=== PATIENT | female | born 1945 | race Caucasian/White ===

== ENCOUNTER 2018-04-15 13:25 | Outpatient (REF) | payer MEDICARE, OTHER, SELFPAY | END 2018-04-15 13:45 | LOC: NCHCN 13:25 | PROVIDERS: PCP Internal Medicine; Visit Provider Nurse Practitioner Family | DX: N39.0 Urinary tract infection, site not specified (principal) | CPT/HCPCS: 87077; 87086; 87186 ==

== ENCOUNTER 2018-06-04 16:25 | Outpatient (REF) | payer MEDICARE, OTHER, SELFPAY ==
[2018-06-04 21:42] LABS: COMMENT (LAB VIEW ONLY) 152.66 mg/dL; Microalb ug/mg Crea 36.4 ug/mg Cr
== END 2018-06-04 16:45 ==
LOC: NCHCN 16:25
PROVIDERS: PCP Internal Medicine; Visit Provider Internal Medicine
DX: E11.9 Type 2 diabetes mellitus without complications (principal)
CPT/HCPCS: 82043; 82570

== ENCOUNTER → 2019-03-23 10:16 | Outpatient (BNVA) | payer MEDICARE, OTHER, SELFPAY | PROVIDERS: PCP Internal Medicine; Referring Provider Internal Medicine; Visit Provider Physical Therapy Assistant | DX: R13.10 Dysphagia, unspecified (principal); Z86.010 Personal history of colon polyps; E11.9 Type 2 diabetes mellitus without complications; I10 Essential (primary) hypertension | CPT/HCPCS: 99213 ==

== ENCOUNTER 2019-03-27 11:48 | Day surgery (SDC) | payer MEDICARE, OTHER, SELFPAY ==
[2019-03-27 12:37] VITALS: BP 146/75; PULSE 77; RESP 16; TEMP 36.4; O2SAT 94
[2019-03-27] MEDS: Lactated Ringers 1,000 ML 80 ML IV (12:42)
--- NOTE | 2019-03-27 13:47 | PDOC.DSDIS_ITS ---
Discharge Plan Disposition Patient Disposition: HOME Condition: Good Discharge Details Reason For Visit: DYSPHAGIA + SCREENING Attending Provider: Thania Brooks Primary Care Provider: Tarik Jovel Home Meds and New Rx's Prescriptions: Continued omeprazole 40 mg capsule,delayed release(DR/EC) 40 mg PO DAILY RF: 0 carvedilol 25 mg tablet 25 mg PO BID RF: 0 olmesartan 40 mg tablet 40 mg PO DAILY RF: 0 metformin 1,000 mg tablet extended release 24hr 1,000 mg PO BID RF: 0 cilostazol 100 mg tablet 100 mg PO BID RF: 0 magnesium oxide 500 mg tablet 500 mg PO DAILY RF: 0 cholecalciferol (vitamin D3) 2,000 unit capsule 2,000 unit PO DAILY RF: 0 hydralazine 100 mg tablet 100 mg PO BID RF: 0 (DME) OneTouch Ultra Test 1 EACH strip 1 strip . DAILY RF: 0 aspirin [Aspir-81] 81 MG tablet,delayed release (DR/EC) 81 mg PO BID RF: 0 (DME) lancets [OneTouch UltraSoft Lancets] 1 EACH misc 1 ea Miscellaneous DAILY RF: 0 loratadine [Claritin Liqui-Gel] 10 MG capsule 10 mg PO DAILY RF: 0 hydrochlorothiazide 12.5 mg Capsule 12.5 mg PO DAILY RF: 0 Discharge Instructions Additional Instructions: Findings: Your EGD showed a hiatal hernia. No dilation was needed. Your colonoscopy showed diverticulosis. Follow up: Consider a colonoscopy in 5 years depending on overall health Please call if you develop: fevers >101.5 Nausea or Vomiting Abdominal pain that is not transient DAY SURGERY UNIT POST COLONOSCOPY INSTRUCTIONS 1. Because there will be medication in your system for the next 24 hours, you may feel a little sleepy. Your coordination will be affected. Therefore: a. Do not drive or operate dangerous equipment for 24 hours. b. Do not drink alcohol beverages for 24 hours (not even beer). c. Plan to go home and rest for the day. 2. Generally there are no restrictions on your activity after a day or so has g one by, but you may feel a bit fatigued for a few days. 3 After you arrive home you may have a light meal and return to a normal diet as you can tolerate it without feeling sick to your stomach. 4. After surgery, you may feel pain or discomfort. This should be only transient, but if it persists please contact your doctor. 5. If there are any questions regarding the findings of your procedure, please feel free to contact your doctor. 6. If you are unable to contact your doctor with a problem, contact the hospital at [phone]. 7. Continue all your regular medications unless directed otherwise. I understand the above instructions and have no questions. Signature of Patient or Responsible Adult Escort Date/Time Name of Responsible Adult Escort Signature of Nurse Date/Time Activity:: Activity as Tolerated Diet:: As Tolerated Discharge Orders Discharge Orders: Discharge Order (Routine); Ordered 03/27/19 Ordered By: Thania Brooks DS: Diagnosis Discharge Diagnosis (1) Hiatal hernia with gastroesophageal reflux: Status: Acute (2) Diverticulosis: Status: Acute
[2019-03-27 15:36] VITALS: BP 152/67; PULSE 68; RESP 16; TEMP 36.4; O2SAT 92
--- NOTE | 2019-03-30 14:10 | ENDO_ITS ---
REPORT OF OPERATIVE PROCEDURE DATE OF PROCEDURE March 27, 2019 PREOPERATIVE DIAGNOSES 1. Dysphagia. 2. History of colon polyps. POSTOPERATIVE DIAGNOSES 1. Hiatal hernia. 2. Diverticulosis. PROCEDURES 1. EGD. 2. Colonoscopy. SURGEON Thania Brooks M.D. ANESTHESIA Monitored Anesthesia Care. INDICATION This is a 73-year-old woman whose colonoscopy in 2014, showed polyps. She presents for routine followup. She also reports episodes of choking when swallowing. It does not seem to matter what type of food it is. This occurs for both solids and liquids. It sounds as though the issue occurs almost immediately with swallowing. PROCEDURE DESCRIPTION She was placed in the left lateral decubitus position. Propofol was titrated to sedation. The scope was advanced into the esophagus under direct visualization and down into the stomach and the duodenum. There was no duodenitis or ulcers noted. The stomach itself was normal including on retroflexed view of the fundus and the lesser curvature with the exception of a small hiatal hernia. The GE junction was carefully inspected and showed no evidence of masses, inflammation, [place]'s or strictures. The air was suctioned from the stomach and the scope withdrawn with no other esophageal lesions found including no evidence of eosinophilic esophagitis. Digital rectal examination revealed no abnormalities. The scope was advanced to the cecum without difficulty. The ileocecal valve and the appendiceal orifice were clearly identified. The scope was slowly withdrawn with no abnormalities seen within the ascending, transverse of descending colon. The sigmoid region revealed mild to moderate diverticular change. The rectum was normal, including on retroflexed view. She tolerated the procedure well and was stable to Recovery. I did discuss the options of doing a swallow study, which she states has been done in the past. At this point, we agreed to not pursue any further workup. She can also consider a followup colonoscopy again in five years due to her history of polyps.
== END 2019-03-27 15:28 | disposition home or self-care (01) ==
PROVIDERS: PCP Internal Medicine; Visit Provider Surgery
PROC: (CPT 43235; principal; 2019-03-27 13:30)
DX: R13.10 Dysphagia, unspecified (principal); Z12.11 Encounter for screening for malignant neoplasm of colon; Z86.010 Personal history of colon polyps; K44.9 Diaphragmatic hernia without obstruction or gangrene; K57.30 Diverticulosis of large intestine without perforation or abscess without bleeding
CPT/HCPCS: 43235; G0105